=== PATIENT | female | born 1940 | race Hispanic/Latino ===

== ENCOUNTER 2017-09-18 17:30 | Inpatient (IN) | payer MEDICARE ==
[2017-09-18 17:58] LABS: #Basophils 0.1 thou/uL (0.0-0.2); #Eosinphils 0.2 thou/uL (0.0-0.7); #Lymphocytes 1.9 thou/uL (1.20-3.40); #Neutrophils 6.9 thou/uL (1.40-6.50); %Basophils 0.5 % (0.0-1.0); %Eosinophils 2.3 % (0.0-10.0); %Lymphocytes 18.8 % (21.0-51.0); %Monocytes 10.1 % (0.0-10.0); %Neutrophils 68.3 % (42.0-75.0); Hemoglobin 12.8 g/dL (12.0-16.0); Mean Corpuscular HGB CONC 34.1 g/dL (32.0-36.0); Mean Corpuscular Hemoglobin 29.5 pg (27.0-31.0); Mean Corpuscular Volume 86.5 fL (78.0-98.0); Mean Platelet Volume 8.7 fL (7.4-10.4); Platelet Count 240 thou/uL (130-400); RBC Distribution Width 14.1 % (11.5-14.5); Red Blood Cell (RBC) Count 4.33 mill/uL (4.20-5.40); White Blood Cell (WBC) Count 10.1 thou/uL (4.8-10.8)
[2017-09-18 18:18] LABS: ALT (SGPT) 10 U/L (8-55); AST (SGOT) 10 U/L (5-34); Albumin 3.6 g/dL (3.4-4.8); Alkaline Phosphatase 70 U/L (40-150); Anion Gap 14 mmol/L (10-20); BUN (Urea Nitrogen) 29 mg/dL (9.8-20.1); Bilirubin, Total 0.6 mg/dL (0.2-1.2); CK (CPK) 23 U/L (29-168); Calc. Creatinine Clearance 0 mL/min (70-130); Calcium 8.8 mg/dL (7.8-10.44); Carbon Dioxide 25 mmol/L (23-31); Chloride 106 mmol/L (98-107); Estimated GFR-MDRD 38; Globulin 2.3 g/dL (2.4-3.5); Glucose 131 mg/dL (83-110); Potassium 4.1 mmol/L (3.5-5.1); Protein, Total 5.9 g/dL (6.0-8.3); Sodium 141 mmol/L (136-145)
[2017-09-18 18:23] LABS: CKMB 0.7 ng/mL (0-6.6); Troponin I Less than 0.010 ng/mL (< 0.028)
[2017-09-18 19:18] LABS: PTT 31.1 SEC (22.9-36.1); Prothrombin Time 13.6 SEC (12.0-14.7)
--- NOTE | 2017-09-18 19:58 | CT ---
CT HEAD WITHOUT CONTRAST: 09/18/17 Multiple axial tomograms obtained through the head without IV enhancement. INDICATIONS: Stroke activation. HISTORY: Mental status changes and visual change. There are no comparison studies. There is an area of low attenuation in the left cerebellum posteriorly concerning for acute/subacute cerebellar infarct probably in the left PICA distribution. This measures approximately 2.3 cm width i n the axial plane. The ventricles have normal size and position. There is no hemorrhage. There is no evidence of cortica l infarct in the supratentorial region. No mass. Sinuses and mastoids are aerated. IMPRESSION: Evidence of acute/subacute left cerebellar hemisphere infarct. Findings relayed to the ER physician at 7:17 p.m. POS: FELICITAS
[2017-09-18] MEDS ORDERED: Enoxaparin Sodium 80 MG/0.8 ML SYRINGE ONE (20:19)
--- NOTE | 2017-09-18 22:13 | CT ---
CT HEAD WITHOUT CONTRAST: 09/18/17 Multiple axial tomograms obtained through the head without IV enhancement. HISTORY: Followup stroke. Comparison made to film earlier in the evening taken at 7:10 p.m. The prior exam revealed a lucency in the posterior left cerebellum. On the current exam, the cerebellar lucency is not apparent. However, there is now abnormal lucency seen in the right occipital lobe which has developed since the earlier film at 7:10 p.m. This current finding is suggestive of a right posterior cerebral artery in farct. No hemorrhage. No other interval change. IMPRESSION: 1. The lucency seen in the left posterior cerebellum on the early film is not apparent on the cu rrent study. 2. There is now asymmetrical cortical lucency in the right occipital lobe concerning for an micah ier right posterior cerebral artery infarct. Suggest further evaluation with MRI which could assess r estricted diffusion and definitively confirm infarcts. Findings discussed with Sharer. POS: FELICITAS
[2017-09-18 22:32] LABS: Troponin I Less than 0.010 ng/mL (< 0.028)
[2017-09-18] MEDS ORDERED: Labetalol HCl 100 MG/20 ML VIAL SLOW IVP PRN (23:54)
[2017-09-18] MEDS ORDERED: Milk Of Magnesia 30 ML UDCUP PO PRN (23:55)
[2017-09-18] MEDS ORDERED: Mag-Al 1200 mg/1200 mg/30 ML UDCUP PO PRN (23:55)
[2017-09-18] MEDS ORDERED: Ondansetron ODT 4 MG TAB PO PRN (23:55)
[2017-09-19 00:54] VITALS: BMI 30.4
[2017-09-19 00:56] LABS: Troponin I Less than 0.010 ng/mL (< 0.028)
[2017-09-19] MEDS: Acetaminophen 325 MG TAB PO PRN ×4 (04:12→20:34)
[2017-09-19 05:20] LABS: #Basophils 0.1 thou/uL (0.0-0.2); #Eosinphils 0.2 thou/uL (0.0-0.7); #Lymphocytes 2.4 thou/uL (1.20-3.40); %Basophils 0.7 % (0.0-1.0); %Eosinophils 1.9 % (0.0-10.0); %Lymphocytes 22.5 % (21.0-51.0); %Monocytes 9.7 % (0.0-10.0); %Neutrophils 65.2 % (42.0-75.0); Hemoglobin 12.9 g/dL (12.0-16.0); Mean Corpuscular HGB CONC 34.5 g/dL (32.0-36.0); Mean Corpuscular Hemoglobin 29.2 pg (27.0-31.0); Mean Corpuscular Volume 84.6 fL (78.0-98.0); Mean Platelet Volume 8.8 fL (7.4-10.4); Platelet Count 250 thou/uL (130-400); Red Blood Cell (RBC) Count 4.41 mill/uL (4.20-5.40); White Blood Cell (WBC) Count 10.8 thou/uL (4.8-10.8)
[2017-09-19 05:41] LABS: ALT (SGPT) 10 U/L (8-55); AST (SGOT) 11 U/L (5-34); Albumin 3.8 g/dL (3.4-4.8); Alkaline Phosphatase 70 U/L (40-150); Anion Gap 13 mmol/L (10-20); BUN (Urea Nitrogen) 20 mg/dL (9.8-20.1); Bilirubin, Total 0.8 mg/dL (0.2-1.2); Calc. Creatinine Clearance 49 mL/min (70-130); Calcium 9.3 mg/dL (7.8-10.44); Carbon Dioxide 24 mmol/L (23-31); Cardiac Risk 4.6 (Less than 4.5); Chloride 108 mmol/L (98-107); Cholesterol 185 mg/dl (< 200 Desired); Estimated GFR-MDRD 51; Globulin 2.3 g/dL (2.4-3.5); Glucose 97 mg/dL (83-110); HDL Cholesterol 40 mg/dL (>60 Neg Risk); LDL Cholesterol, Calculated 123 mg/dL; Potassium 3.6 mmol/L (3.5-5.1); Protein, Total 6.1 g/dL (6.0-8.3); Sodium 141 mmol/L (136-145); Triglycerides 112 mg/dL (Less than 150); Uric Acid 8.4 mg/dL (2.6-6.0)
[2017-09-19 05:54] LABS: Thyroid Stimulating Hormone 1.1925 uIU/mL (0.35-4.94)
[2017-09-19 06:07] LABS: Free T4 (Free Thyroxine) 1.07 ng/dL (0.70-1.48)
[2017-09-19] MEDS ORDERED: Enoxaparin Sodium 80 MG/0.8 ML SYRINGE SC SCH (09:00)
--- NOTE | 2017-09-19 09:07 | CT ---
CT ANGIO HEAD 09/18/17 Multiple axial tomograms obtained through the head with arterial phase enhancement following an angio protocol with multiplanar reconstructions and 3D postprocessing. INDICATIONS: Stroke protocol. FINDINGS: The intracranial internal carotid arteries are patent. Atherosclerotic calcifications seen in the cav ernous portions of the both internal carotid arteries and this does produce mild stenosis; however, t his does not appear hemodynamically significant. Both middle cerebral arteries appear unremarkable. A nterior cerebral artery is unremarkable. Basilar artery is patent. Posterior cerebrals are unremarkable. The intracranial vertebral arteries are patent with mildly dominant left vertebra. Both PICAs are angelina ntified. Inferior cerebellar artery on the left is not well seen. Both superior cerebellar arteries a re identified. IMPRESSION: Cerebral CT angiogram unremarkable. No major stenosis or occlusion identified. Specifically PICAs are identified. The left anterior inferior cerebellar artery is not well demonstrated. CT ANGIO OF NECK: Multiple axial tomograms obtained through the neck following angio protocol with multiplanar reconstr uctions and 3D postprocessing. INDICATIONS: Stroke protocol. There is atherosclerotic calcification in the aortic arch and this produces mild stenosis at the orig in of the left common carotid. The degree of stenosis appears less than 50% diameter. The left common carotid is otherwise unremarkable. Mild atherosclerotic changes seen at the left carotid bifurcation and proximal left ICA; however, no evidence of significant stenosis. The right common carotid is unremarkable. Moderate atherosclerotic change seen in the right carotid b ifurcation and proximal right ICA; however, the degree of stenosis is not hemodynamically significant . There is irregular plaque at this location which could be a source of embolus. Both internal caroti d arteries above the bulb are very tortuous; however, no evidence of significant stenosis. Both vertebral arteries are patent. The soft tissues show enlarged heterogeneous thyroid with numerou s thyroid nodules in both lobes. There appears to be a dominant mass in the left thyroid measuring up to 2.2 cm. Recommend elective evaluation. IMPRESSION: 1. Mild to moderate stenosis at the origin of the left common carotid at the aortic arch. 2. Irregular plaque in the proximal right ICA without hemodynamically significant stenosis. 3. Very tortuous internal carotid arteries above the bulbs bilaterally. 4. Thyroid is enlarged heterogeneous with numerous small nodules with at least one dominant nodu le identified. POS: LINDA
[2017-09-19] MEDS ORDERED: Amlodipine 5 MG TAB PO SCH (14:00)
[2017-09-19] MEDS ORDERED: Lorazepam 0.5 MG TAB PO PRN (15:17)
[2017-09-19] MEDS ORDERED: Lorazepam 2 MG/ML VIAL SLOW IVP SCH (15:17)
--- NOTE | 2017-09-19 18:36 | HP ---
DATE OF ADMISSION: 09/18/2017 PRIMARY CARE PHYSICIAN: Dr. Geovanny Blanco. CHIEF COMPLAINT: Acute weakness and visual changes. HISTORY OF PRESENT ILLNESS: The patient had acute left-sided weakness in the right visual field defect, stroke score was initially 3 and then moved to 6. The patient had two brain CTs regarding this change in [place] confirmation of acute on subacute infarct. The patient was initiated on therapeutic Lovenox following finding of atrial fibrillation on review of patient's past medical history includes history of atrial fibrillation when patient went into initial thyroid storm and since been placed on methimazole 5 mg 1-1/2 tab daily for control of her symptoms along with her beta ayad, metoprolol without any further episodes of atrial fibrillation in multiple years. The patient was asymptomatic prior to this acute onset of weakness that occurred approximately 3-5 hours prior to presentation to the emergency room last night and has gotten better following initial worsening with anticoagulation therapy and permissive hypertension overnight. The patient has no acute complaints, states her gout in left lower extremity has been controlled. REVIEW OF SYSTEMS: No fever, no chills. Positive headache, positive visual field changes, no cough, no congestion, no runny nose, no sore throat. No chest pains, no palpitations felt per patient. No abdomen pain, no constipation , no diarrhea. No lower extremity edema. No lower extremity pain or swelling in joints currently. No nausea, vomiting, no diarrhea, no constipation. Left- sided weakness resolved, left toe sensorium changes resolved. PAST MEDICAL/SOCIAL/SURGICAL HISTORY: Includes hyperlipidemia, hypertension, thyrotoxicosis with associated atrial fibrillation, resolved for many years, gout with ptosis, coronary artery disease including bypass graft, herniated disk repair of C5-C6, C6-C7, history of childhood asthma no longer active, restless leg syndrome, total vessel CABG x4, patient with hysterectomy and bilateral salpingo-oophorectomy, cholecystectomy, hernia repair, laparoscopic knee, arthroscopy. The patient is a former smoker, quit in 2004. Currently , with family in the city. HOME MEDICATIONS: Include aspirin 325, methimazole 5 mg, verapamil 240 mg extended release, metoprolol 50 mg extended release, pravastatin 40, Ambien 10 mg, allopurinol 300 mg, prednisone 20 mg; however, the patient had finished burst last week and is no longer currently on steroids, Colcrys p.r.n. gout flare-up 0.6 mg b.i.d. IMAGING DATA: On review of CT head, acute on subacute left cerebellar infarct, no hemorrhagic component on repeat CT, [place] contrast study, atherosclerotic changes of aortic arch with mild stenosis of left common carotid artery less than 50% stenosis, irregular plaque and proximal right ICA with patent flow, enlarged thyroid with several nodules present, tortuous internal carotid arteries bilaterally. PHYSICAL EXAMINATION: VITAL SIGNS: On arrival to floor, temperature 97.7, pulse of 68, respiratory rate of 18, oxygen saturation 97%, blood pressure ranging from 145 to 226 systolic and 71 to 98 diastolic. The patient did receive p.r.n. blood pressure medication on labetalol for that. LABORATORY WORK: Troponins x3 less than 0.01, sodium 141, potassium of 4.1, CO2 of 106, creatinine of 1.35 resolved with light IV hydration overnight to 1.06. Uric acid level of 8.4, calcium of 8.8, AST of 10, ALT of 10, albumin of 3.6. TSH of 1.19, free T4 of 1.0, T3 of 2.2. Cholesterol panel with LDL of 123 , HDL of 40, triglycerides 112. PHYSICAL EXAMINATION: GENERAL: The patient is alert and oriented x2. Cannot state date or time a year. Specifically, has trouble listing presidents, but does get right answer on multiple choice. The patient is in no acute distress. HEENT: Normocephalic, atraumatic. Extraocular movements are intact. However, on visual field confrontation, there is a right temporal visual field deficit of approximately 20-30 degrees compared to left. Pupils are equal, round, reactive, and accommodate to light. NECK: Supple. NEUROLOGIC: Cranial nerves II-XII through 10, otherwise grossly intact on exam. The patient's upper and lower extremities are 5/5 strength and equal, 2+ reflexes bilaterally. HEART: Irregularly irregular pattern. No murmurs auscultated. LUNGS: Clear to auscultation bilaterally. No rubs or wheezes. ABDOMEN: Soft, nontender, positive bowel sounds throughout. EXTREMITIES: Lower extremities without cyanosis or edema. ASSESSMENT AND PLAN: Left cerebellar infarct with visual field deficit, recurring speech pattern, resolved left sensorium and muscular changes, new reoccurrence of patient's atrial fibrillation despite her hyperthyroidism being in control. Permissive hypertension, holding patient's home blood pressure medications for CVA protocols, just out of bed p.r.n. with labetalol p.r.n. for systolic greater than 220. Urology to follow, Cardiology to follow regarding the patient's gout not currently flare up, currently holding most the patient's home medications regarding her gout treatment. We will restart as needed. Her uric acid level is elevated. Speech therapy, physical therapy to assess the patient. The patient passed a bedside swallow, started on diet this early a.m. without choking spells or problems. Neuro checks per unit protocol. The patient will be continued on therapeutic Lovenox. Echo and MRI read pending. Nursing update: pt unable to tolerate cramped space. Requesting Ativan for sedation for additional try through MRI. CHARAND
--- NOTE | 2017-09-19 18:56 | CON ---
DATE OF CONSULTATION: 09/19/2017 REASON FOR CONSULTATION: Stroke, likely embolic, atrial fibrillation, history of coronary artery dis ease. HISTORY OF PRESENT ILLNESS: Ms. Elise Livingston is a very pleasant 77-year-old woman, patient of Dr. Cole Patel. The patient has a history of coronary artery bypass grafting in the past, admitted on th is occasion with a stroke. The patient was brought to the hospital with incoordination and weakness, also some difficulty with s peech. She was evaluated and found to have a cerebellar stroke and ischemic evaluation of the caroti d arteries reveals plaque, but no hemodynamic significant obstruction. The patient continues to have problem with coordination, especially the left side of her body. The brain CT revealed lucency of l eft posterior cerebellum, asymmetrical cortical lucency right occipital lobe. The patient did have some worsening of symptoms between the two CT scans, but seems to be improving n ow. PAST MEDICAL HISTORY: History of coronary artery bypass grafting in the year 1999, Dr. Lockhart after a non-Q wave infarction x4, internal mammary to the LAD, radial to the distal right coronary artery, vein graft to the diagonal, vein graft to the posterior descending artery. The patient had previousl y been treated with TPA. The patient was seen by Dr. Patel in 2009, underwent repeat cardiac catheterization and found that one of the vein graft that occluded and a nondrug coated stent was placed in the [place] circumflex 3 .5 x 20, very flexed, patient did well following that. She has been doing well from a cardiac standp oint. There is also some remote history of atrial fibrillation. MEDICATIONS PRIOR TO ADMISSION: 1. The patient was taking metoprolol succinate 50 mg a day. 2. Verapamil 240 mg a day. 3. Livalo. 4. Hydrochlorothiazide. 5. Aspirin 325 mg a day. 6. Gemfibrozil. ALLERGIES: CEPHALEXIN, HYDROCODONE, STATINS. Some of the statins cause muscle discomfort apparently . REVIEW OF SYSTEMS: Constitutional: No weakness or fatigue prior to this. Vision: No changes. Hea ring: No changes. Pulmonary: No shortness of breath. Cardiac: No chest pain or tightness. Gastr ointestinal: No nausea, vomiting, diarrhea. Skin: No rashes. Neurologic: As outlined in the hist ory of present illness. She also has a problem with her short term memory currently, the problem wit h transfer and short term memory to longer term memory. PHYSICAL EXAMINATION: GENERAL: This is a delightful elderly woman. VITAL SIGNS: Blood pressure in the last reading 203/100, pulse is 70, it is irregularly irregular. ABDOMEN: Soft, nontender. EXTREMITIES: No clubbing or cyanosis. There is only mild peripheral edema. Pulses are present alexa pherally. PERTINENT LABORATORY AND X-RAY FINDINGS: Hemoglobin is 12.9, hematocrit 37.3. Her LDL cholesterol is 123. The EKG initially showed atrial fibrillation with a slow ventricular res ponse, but she has not received the diltiazem or metoprolol and now heart rate is up in the 80s. ASSESSMENT: 1. Embolic stroke, likely related to atrial fibrillation. 2. Coronary artery disease, appears stable. 3. Hypertension. 4. Previous coronary bypass grafting. PLAN: 1. We will resume beta blockers to heart rate control. 2. We will add dihydropyridine to help blood pressure control. 3. Continue anticoagulation. Dr. Patel will return Thursday to resume patient's care. I will cont inue to see her over the weekend. I will double check and see what the most recent blood pressure is .
--- NOTE | 2017-09-19 19:57 | CON ---
DATE OF CONSULTATION: 09/19/2017 CHIEF COMPLAINT: Acute stroke. HISTORY OF PRESENT ILLNESS: Patient's daughter was by her bedside, but she was not present during the event when she was brought to the hospital, but daughter said her stepfather called her and said she was sick and may be having a stroke and patient's daughter quickly went there and she describes this as an episode of some sort where she had significant confusion along with weakness and she had blurred vision and visual difficulties and moving toward the right when she was walking and she had headache as well and she takes aspirin daily. The patient has never had a stroke and she also had more confusion even when she was in the emergency room and she had problems including difficulties with confusion which is new for her, and she is normally able to keep up with dates and has a calendar and maintains everything at home. PRIOR MEDICAL HISTORY: Coronary artery disease status post stent placement, hypothyroidism, hyperlipidemia, hypertension, and gout. PAST SURGICAL HISTORY: Appendectomy, coronary artery bypass graft which was a 4 -vessel bypass, hysterectomy, stent placement. SOCIAL HISTORY: No use of alcohol or drugs. Used to smoke, quit smoking 10 years ago. ALLERGIES: KEFLEX causes hives, STATINS and VICODIN. CURRENT MEDICATIONS: At home, she takes methimazole, hydrochlorothiazide, metoprolol, verapamil and aspirin. FAMILY HISTORY: Negative for stroke, but positive for coronary artery disease. LABORATORY DATA AND IMAGING DATA: Current laboratory reports; white count 10.8 , hemoglobin 12.9, hematocrit 37.3, platelets 250, PT 13.6, INR 1, PTT 31.1. Sodium 141, potassium 3.6, chloride 108, bicarbonate 24, BUN 20, creatinine 1.06 , AST 11, ALT 10, alkaline phosphatase 70, T3 is 2.27, T4 1.07, TSH 1.19 and her reports including brain CT scan. 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 Vertebrals are patent and no stenosis, especially in the MEDICAL OFFICE TECHNICIAN according to this report. REVIEW OF SYSTEMS: Pulmonary: Normal. CARDIAC: Normal. GASTROINTESTINAL: Normal. No diarrhea or constipation. CARDIAC: Negative for any chest pain or palpitations. GENITOURINARY: No bladder issues such as urgency or frequency of urination. NEUROLOGICAL: Positive for vision deficit which has resolved by this morning and also incoordination and confusion. HEMATOLOGIC: Normal. No bleeding diatheses. DERMATOLOGIC: Normal. PHYSICAL EXAMINATION: VITAL SIGNS: Blood pressure 203/100, temperature 97.8, respiratory rate 24, pulse is 74. GENERAL APPEARANCE: Well-built, well-nourished lady who seems to be slightly confused. Daughter is by the bedside. CHEST: Clear vesicular breathing. CARDIOVASCULAR: S1, S2 heard, no murmurs. ABDOMEN: Soft, nontender, no organomegaly noted. NEUROLOGIC: Oriented to place and person, but not to time, says it is July and 2011. She could not give me a date and her cranial nerve examination II through II, normal extraocular movements. Normal fundus exam. Normal pupillary reaction bilaterally and her examination also shows normal sensation of face bilaterally. Preserved visual diallo bilaterally and tongue midline, no atrophy noted. Normal sensation of face. No facial asymmetry. Hearing is normal. MOTOR: Bulk normal, tone normal, strength is 5/5 in upper and lower extremities in iliopsoas, hamstrings, quadriceps, ankle dorsiflexion, plantar flexion, deltoid, biceps, triceps, wrist extension/flexion, finger extension and flexion bilaterally. Deep tendon reflexes are 2+ throughout. SENSORY: Normal touch, pinprick, proprioception, vibration bilaterally. CEREBELLAR: Normal ghjpea-[id number] on the right side and normal heel to michel on the right side. Cerebellar; impaired [id number] and [id number] on the left side. IMPRESSION: Patient is a 77-year-old lady with vascular disease including coronary artery disease and prior stent placement. She has hypertension and hyperlipidemia. She takes aspirin for her cardiac issues. She developed sudden onset acute stroke including confusion and incoordination and visual field defects. Her examination shows resolution of the visual field defect, but she has clearly abnormalities on her cerebellar examination on the left side. Clinical diagnosis is most consistent with acute cerebellar stroke most likely left MEDICAL OFFICE TECHNICIAN infarct and she is currently pending MRI scan. RECOMMENDATIONS: I would like to go ahead and follow up on the carotid Dopplers as well as MRI of the brain. Consider adding Plavix in addition to aspirin for stroke prevention and complete stroke workup including echocardiogram. I will follow up patient with you. XOCHITL
[2017-09-19] MEDS: Enoxaparin Sodium 80 MG/0.8 ML SYRINGE SC SCH (20:33)
[2017-09-19] MEDS: Pravastatin Sodium 40 MG TAB PO SCH (20:35)
[2017-09-19] MEDS: Metoprolol Tartrate 25 MG TAB PO SCH (20:35)
[2017-09-20] MEDS: Acetaminophen 500 MG TAB PO PRN ×3 (02:03→15:19)
[2017-09-20 06:24] LABS: Hemoglobin 13.8 g/dL (12.0-16.0); Platelet Count 243 thou/uL (130-400)
[2017-09-20] MEDS ORDERED: Amlodipine 5 MG TAB PO SCH ×3 (09:00→19:45)
[2017-09-20] MEDS: Metoprolol Tartrate 25 MG TAB PO SCH ×2 (09:25→20:31)
[2017-09-20] MEDS: Enoxaparin Sodium 80 MG/0.8 ML SYRINGE SC SCH (09:25)
--- NOTE | 2017-09-20 10:53 | MRI ---
BRAIN MRI NONCONTRAST: COMPARISON: Reference is made to prior head CT exams 09/18/17. CLINICAL HISTORY: Left cerebellar stroke, generalized weakness. FINDINGS: There is evidence of abnormal restricted diffusion within a right HEAD OF INSIGHT distribution which involves the right occipital lobe, inferior right temporal lobe, and the right thalamus. Left HEAD OF INSIGHT distribution i nfarction is also present within the left occipital lobe. Subacute left cerebellar hemispheric infar ct is redemonstrated. There is susceptibility within the left occipital lobe. There is no midline s hift or ventriculomegaly. The large central skull base flow voids are patent. There is scattered mi ld mucosal thickening/retention cyst formation. IMPRESSION: Multifocal bilateral HEAD OF INSIGHT distribution infarctions, recent and subacute in time frame as discussed abo ve. There is associated hemorrhagic transformation within the left occipital lobe. Continued noncon trast head CT followup is warranted. Telephone call with findings placed to patient's physician, Dr. Leo Howell, at the time of inter pretation, 1031 hours, 09/20/17. CODE CR POS: FELICITAS
--- NOTE | 2017-09-20 12:39 | PDOC.CTH ---
Cardiology Progress Note - Objective Vital Signs Temp Pulse Pulse Pulse Resp BP BP 09/20/17 11:44 98.4 F 85 16 09/20/17 11:26 86 83 159/83 H 173/81 H 09/20/17 09:25 81 09/20/17 08:30 98.4 F 85 16 09/20/17 08:00 98.6 F 81 16 09/20/17 04:00 98.9 F 84 18 BP Pulse Ox 09/20/17 11:44 185/82 H 97 09/20/17 11:26 09/20/17 09:25 09/20/17 08:30 92 L 09/20/17 08:00 139/87 92 L 09/20/17 04:00 167/79 H 96 Weight 150 lb 11.2 oz 09/19/17 09/20/17 09/21/17 06:59 06:59 06:59 Intake Total 240 1650 Output Total 500 Balance 240 1150 - Telemetry Telemetry Rhythm: AFib/AFlutter, rate-controlled - Labs Result Diagrams: 09/20/17 05:42 09/20/17 05:42 Troponin/CKMB CK-MB (CK-2) 0.7 ng/mL (0-6.6) 09/18/17 17:51 Troponin I Less than 0.010 ng/mL (< 0.028) 09/19/17 00:26 - Assessment/Plan 1. CVA, embolic-likely 2/2 to AFib. Symptoms improving. 2. AFib/AFlutter- persistent, rate controlled on metoprolol. Continue enoxaparin 1mg/kg BID. 3. CAD-s/p CABG, s/p PCI. No anginal symptoms. On ASA, BB, statin. 4. Essential HTN- 5. Hyperlipidemia- most recent LDL 123.
[2017-09-20] MEDS ORDERED: Protamine Sulfate 50 MG/5 ML VIAL SLOW IVP SCH (14:15)
[2017-09-20] MEDS: cloNIDine 0.1 MG TAB PO PRN (14:15)
--- NOTE | 2017-09-20 14:34 | PRG ---
DATE OF SERVICE: 09/20/2017 CHIEF COMPLAINT: Bilateral DJANGO DEVELOPER infarct. INTERVAL HISTORY: The patient is stable overnight and is also working with a therapist with her gait . No new complaints per family. Current report MRI shows abnormal restricted diffusion within the r ight DJANGO DEVELOPER which involves right occipital lobe, right temporal lobe and right thalamus. Left DJANGO DEVELOPER infar ct is also present within the left occipital lobe. Subacute left cerebellar hemispheric infarct susc eptibility within the left occipital lobe and so these are compatible with multiple left DJANGO DEVELOPER infarct. LABORATORY DATA: Hemoglobin 13.8, hematocrit 40.7, platelets 243 and chemistry, BUN 1.15. Creatinin e 46. PHYSICAL EXAMINATION: GENERAL: Well-built, well-nourished lady who is comfortable. Daughter is by her bedside. VITAL SIGNS: Blood pressure 185/82, temperature 98.4, pulse is 85. CHEST: Clear vesicular breathing. CARDIOVASCULAR: S1, S2 heard, no murmurs. NEUROLOGIC: Higher intellectual functions, normal orientation to time, place, person. Cranial nerve s: Normal extraocular movements. She did not report any visual field defect today and no facial asy mmetry noted. Motor, bulk normal, tone normal, strength 5/5, but cerebellar exam, left cerebellar ab normalities with [id number]-xysp and [id number]-ih-[id number]. Gait, she is trying to stand up on her own and is same and seems to be stable, but walks with a walker. IMPRESSION: Patient is a 77-year-old lady with bilateral posterior cerebral artery infarcts, likely embolic in nature. At this time, due to concern for hemorrhagic transformation, it is jones to hold o ff on anticoagulation and temporarily. RECOMMENDATIONS: Please monitor neurological status. She eventually will need anticoagulation or an tiplatelet therapy and for her cardiac issues and she is being seen by Cardiology as well at this maryjane e. Please call Neurology. I will request Neurology team to follow her tomorrow again.
--- NOTE | 2017-09-20 14:55 | PRG ---
DATE OF SERVICE: 09/20/2017 HISTORY OF PRESENT ILLNESS: The patient's short term memory has substantially worsened from yesterda y. On exam, her right temporal field of view is somewhat worsened. Patient is not having any speech difficulties, not having any motor dysfunction. Following Ativan premedication, she was able to und ergo MRI, found to have a slow extension of her cerebellar infarct. This is acute as well on subacut e process. 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 There is a small punctate hemorrhagic transformation in the left occipital lobe; however, this is discussed with radiologist sb Bailey, neurologist. OBJECTIVE: VITAL SIGNS: Temperature of 98.4, pulse of 85, respiratory rate of 16, oxygen saturation on 92-97% o n room air, blood pressure 173/81. GENERAL: The patient is alert x2. No focal distress. She is anxious. HEENT: Head is normocephalic, atraumatic. Extraocular movements are intact. Pupils are equal, roun d, and accommodate to light with intact convergence. Patient with worsening right oil field of view deficits now to approximately 40-45% from 100% degree plane laterally. The patient with worsening re peating of herself short term memory, ask the same question approximately 3-5 times in a 20 minute ti me frame at bedside. Upper and lower extremities intact, 5/5 strength. Sensorium is intact. The pa flako reportedly had difficulty balancing with physical therapy when walking yesterday. CARDIOVASCULAR: Patient with irregularly irregular rate. No murmurs auscultated. LUNGS: Clear to auscultation bilaterally. No rubs or wheezes. ABDOMEN: Soft, nontender, positive bowel sounds throughout. EXTREMITIES: Lower extremities without cyanosis or edema. Bilateral dorsalis pedis pulses intact. LABORATORY DATA: Hemoglobin of 13.8, creatinine of 1.1. Echocardiogram and CT neck unremarkable for stenosis and an intact ejection fraction. 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 Cardiology agrees with anticoagul ation; however, his evaluation was prior to known hemorrhagic extension, although be at punctate. Ra diology recommending a CT head to further evaluate in morning and any mass effect shift. Neurology a colby with slight decrease in Lovenox to [address] head, continuing physical therapy sp eech at this point in time. Regarding the patient's atrial fibrillation, currently on rate control w ith metoprolol and blood pressure control with Norvasc with some permissive hypertension elements giv en patient's current stroke status. The patient has been tolerating diet well. Given extension of s troke and current balance issues, we will likely bring in case management for potential transitional placement. Patient has been started on Ativan for anxiety, successfully underwent MRI with IV Ativan for premedication procedure.
[2017-09-20 15:04] LABS: Bilirubin Small (Negative); Blood, Urine Trace (Negative); Clarity CLOUDY (Clear); Glucose, Urine (Dipstick) Negative (Negative); Leukocyte Negative (Negative); Nitrite Negative (Negative); Protein, Urine (Dipstick) 300 mg/dL (Neg-Trace); Specific Gravity, Urine 1.027 (1.002-1.036); pH, Urine 6.5 (5.0-9.0)
[2017-09-20 15:07] LABS: Squamous Epithelial 21-50 HPF (0-3)
[2017-09-20 15:08] LABS: Pathc Cast-AUWi Flag 3.48 (0-2.49); Yeast-AUWi Flag 207.8 (0-25.0)
[2017-09-20 15:15] LABS: Bacteria/HPF 1+ HPF (None Seen); Hyaline Casts/LPF NONE SEEN LPF (0-3 Hyaline); Manual Microscopic Reviewed? No Path Casts Seen; Yeast-All Forms 1+ HPF (None Seen)
[2017-09-20] MEDS: Pravastatin Sodium 40 MG TAB PO SCH (20:31)
[2017-09-21 05:28] LABS: #Basophils 0.1 thou/uL (0.0-0.2); #Eosinphils 0.2 thou/uL (0.0-0.7); #Lymphocytes 2.5 thou/uL (1.20-3.40); #Monocytes 1.1 thou/uL (0.11-0.59); #Neutrophils 6.6 thou/uL (1.40-6.50); %Basophils 0.6 % (0.0-1.0); %Eosinophils 1.7 % (0.0-10.0); %Lymphocytes 23.9 % (21.0-51.0); %Monocytes 10.8 % (0.0-10.0); %Neutrophils 63.1 % (42.0-75.0); Hemoglobin 13.9 g/dL (12.0-16.0); Mean Corpuscular HGB CONC 33.1 g/dL (32.0-36.0); Mean Corpuscular Hemoglobin 28.6 pg (27.0-31.0); Mean Corpuscular Volume 86.3 fL (78.0-98.0); Platelet Count 256 thou/uL (130-400); Red Blood Cell (RBC) Count 4.88 mill/uL (4.20-5.40); White Blood Cell (WBC) Count 10.4 thou/uL (4.8-10.8)
[2017-09-21 05:52] LABS: ALT (SGPT) 10 U/L (8-55); AST (SGOT) 16 U/L (5-34); Albumin 3.7 g/dL (3.4-4.8); Alkaline Phosphatase 70 U/L (40-150); Anion Gap 12 mmol/L (10-20); BUN (Urea Nitrogen) 14 mg/dL (9.8-20.1); Bilirubin, Total 0.9 mg/dL (0.2-1.2); Calc. Creatinine Clearance 45 mL/min (70-130); Calcium 9.6 mg/dL (7.8-10.44); Carbon Dioxide 25 mmol/L (23-31); Chloride 105 mmol/L (98-107); Estimated GFR-MDRD 46; Globulin 2.6 g/dL (2.4-3.5); Glucose 92 mg/dL (83-110); Potassium 3.4 mmol/L (3.5-5.1); Protein, Total 6.3 g/dL (6.0-8.3); Sodium 139 mmol/L (136-145)
--- NOTE | 2017-09-21 08:11 | CT ---
CT OF THE BRAIN WITHOUT CONTRAST: INDICATION: History of hemorrhagic stroke. COMPARISON: MRI of the brain dated 09/19/[address] of the brain dated 09/18/17. FINDINGS: The known bilateral SOFTWARE INSTALLER distribution infarcts and left inferior cerebellar hemorrhage infarct is much more apparent on CT than on the comparison dated 09/18/17. Area of cortical hemorrhagic conversion i nvolving the left occipital lobe appears similar to the comparison MR dated 09/20/17. There is much m ore apparent edema within bilateral occipitals as well as the cerebellar hemisphere. Basilar cistern s remain patent. No midline shift is evident. The skull and extracranial soft tissues appear within normal limits. IMPRESSION: Evolutionary changes of the bilateral SOFTWARE INSTALLER and left inferior cerebellar hemisphere infarcts. There is cortical hemorrhagic conversion involving the left occipital lobe infarct best seen on the MR examin ation of 09/20/17 appears stable. No apparent midline shift or basilar cistern effacement is grossly evident. POS: [facility]
--- NOTE | 2017-09-21 08:18 | PRG ---
DATE OF SERVICE: 09/21/2017 SUBJECTIVE: This is a 77-year-old white female, who presented on Thursday, 3 days prior, with ataxia a nd memory loss. She was doing well prior to that. She was brought to the emergency room and was fou nd to have a bilateral GEOSPATIAL INFORMATION TECHNOLOGIST infarctions, recent and subacute. She was placed on Lovenox. The rema calvo was present this morning and states that she is improving slowly. She is conversing, but experienc ing problems with short-term memory loss and with walking. She seems to shuffle and has a quit gait, not well controlled. OBJECTIVE: VITAL SIGNS: Temperature 98.4, pulse 84, respirations 16, pulse ox 95, blood pressure 173/84. HEART: Irregularly, irregular. No murmurs noted. LUNGS: Clear. ABDOMEN: Soft. NEUROLOGIC: With abnormal [id number] and decreased coordination of the left side. She does have good strength bilaterally, but does not have coordinated movements. LABORATORY DATA: White count 10.4, H and H 13 and 42. Electrolytes: Sodium 139, potassium 3.4, cre atinine 1.14, BUN 14. CT done this morning for followup. ASSESSMENT: 1. Bilateral posterior cerebral artery infarction, worse on the left. 2. Atrial fibrillation. 3. Hyperthyroidism. 4. Hypertension. 5. Hyperlipidemia. 6. Gout. 7. Anxiety disorder. PLAN: 1. CT report pending this morning. 2. Cautious anticoagulation. 3. Continue to monitor for any progression. 4. Will need to be on long-term anticoagulation to prevent further stroke progression or recurrence.
--- NOTE | 2017-09-21 08:57 | ADD-PRG ---
ADDENDUM DATE OF SERVICE: 09/20/2017 SUBJECTIVE: Ms. Livingston is feeling better today. She is more alert and awake. Her coordination seems to have improved. OBJECTIVE: VITAL SIGNS: Her blood pressure, however, is high earlier in the day was 139/87, but follow up was 1 73/81 and 185/82, pulse is 85, it is irregular. LUNGS: Clear. CARDIAC: Irregularly irregular. The brain MRI revealed that she has multiple bilateral posterior circulation distribution infarctions recent and subacute compatible with embolic event from her atrial fibrillation. In addition to that, there is some associated hemorrhagic transformation within the left occipital lo be. ASSESSMENT: 1. Multiple embolic strokes, likely from her atrial fibrillation. 2. Some hemorrhagic transformation identified. 3. Hypertension. 4. Chronic atrial fibrillation. PLAN: 1. We will give additional medicine to lower blood pressure. 2. She is clinically stable and is now over 4 hours after the enoxaparin dose most recently, but I w ill go ahead and at least give her some dose of protamine, at least partially reverse the enoxaparin. Prognosis guarded to this patient. Unfortunately, she will be at high risk of further embolic stro kes. At some point, consideration for resuming anticoagulants. For now, we will stop aspirin and st op enoxaparin.
[2017-09-21] MEDS ORDERED: Aspirin 81 mg Enteric Coated Tablet PO SCH (09:00)
[2017-09-21] MEDS: cloNIDine 0.1 MG TAB PO PRN (09:01)
[2017-09-21] MEDS: Amlodipine 10 MG TAB PO SCH (09:02)
[2017-09-21] MEDS: Metoprolol Tartrate 25 MG TAB PO SCH ×2 (09:02→19:58)
[2017-09-21] MEDS: Methimazole 5 MG TAB PO SCH (09:02)
[2017-09-21] MEDS: Acetaminophen 500 MG TAB PO PRN (11:27)
[2017-09-21] MEDS: Acetaminophen 325 MG TAB PO PRN ×2 (16:51→22:42)
[2017-09-21] MEDS: Pravastatin Sodium 40 MG TAB PO SCH (19:58)
[2017-09-22] MEDS: Acetaminophen 500 MG TAB PO PRN ×2 (09:05→17:05)
[2017-09-22] MEDS: ALPRAZolam 0.25 MG TAB PO PRN ×3 (09:06→21:25)
[2017-09-22] MEDS: Amlodipine 10 MG TAB PO SCH (09:06)
[2017-09-22] MEDS: Metoprolol Tartrate 25 MG TAB PO SCH ×2 (09:06→21:25)
[2017-09-22] MEDS: Polyethylene Glycol 3350 17 GM Packet PO SCH (09:07)
[2017-09-22] MEDS: Methimazole 5 MG TAB PO SCH (09:07)
[2017-09-22] MEDS: Ezetimibe 10 MG TAB PO SCH (09:30)
--- NOTE | 2017-09-22 13:14 | PRG ---
DATE OF SERVICE: 09/22/2017 SUBJECTIVE: The patient is having difficulty sleeping. She has been very agitated. She ruminates o stephanie various things. She is focusing on her IV in her left forearm. She states . It is being a ble to be removed today. She is also very emotional and said does not want to go to [facility]. The family reports that she has a very staggering gait. She walks with rapid short steps . She also requires assistance. She is able to eat with some slight difficulty. She has decreased coordination in her left upper extremity. OBJECTIVE: VITAL SIGNS: Temperature 97.7, pulse 87, respirations 20, pulse ox 97, blood pressure 129/76. HEART: Irregularly irregular. LUNGS: Clear. ABDOMEN: Soft. EXTREMITIES: No edema. NEUROLOGIC: Abnormal [id number] with the left upper extremity abnormal dysdiadochokinesis of the left upper extremity. She appears to have upper peripheral vision defects bilaterally. LABORATORY DATA: None. ASSESSMENT: 1. 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 No midline shift. Hemorrhage is present. Anticoagulation at this time is on hold. 2. Status post coronary artery bypass graft. 3. Atrial fibrillation. 4. Hypertension. 5. Hyperlipidemia. 6. Gout. PLAN: 1. Discharge planning. I strongly recommend the patient go to [facility]. Family is all in agreement. The patient is unable to go home at this time due to her deficits. 2. Will depend on Cardiology and Neurology to determine when to initiate anticoagulation. She is at risk for further bleeding. Unfortunately, the patient may not be a candidate for Zoloft for anxiety due to Zoloft increase risk of cerebral hemorrhage. Also Wellbutrin may not be a good choice due to its increased risk for seizures. Xanax may be the only choice. She may require Xanax at bedtime.
[2017-09-23] MEDS: Acetaminophen 500 MG TAB PO PRN (01:28)
[2017-09-23 05:31] LABS: INR-International Normal Ratio 1.1; Prothrombin Time 14.2 SEC (12.0-14.7)
[2017-09-23 05:34] LABS: #Eosinphils 0.1 thou/uL (0.0-0.7); #Lymphocytes 1.6 thou/uL (1.20-3.40); #Monocytes 1.3 thou/uL (0.11-0.59); #Neutrophils 7.2 thou/uL (1.40-6.50); %Basophils 0.3 % (0.0-1.0); %Eosinophils 1.2 % (0.0-10.0); %Lymphocytes 15.7 % (21.0-51.0); %Monocytes 12.8 % (0.0-10.0); Hemoglobin 13.1 g/dL (12.0-16.0); Mean Corpuscular HGB CONC 33.1 g/dL (32.0-36.0); Mean Corpuscular Hemoglobin 28.2 pg (27.0-31.0); Mean Corpuscular Volume 85.4 fL (78.0-98.0); Mean Platelet Volume 8.7 fL (7.4-10.4); Platelet Count 235 thou/uL (130-400); RBC Distribution Width 14.1 % (11.5-14.5); Red Blood Cell (RBC) Count 4.64 mill/uL (4.20-5.40); White Blood Cell (WBC) Count 10.3 thou/uL (4.8-10.8)
[2017-09-23 05:38] LABS: Anion Gap 11 mmol/L (10-20); BUN (Urea Nitrogen) 14 mg/dL (9.8-20.1); Calc. Creatinine Clearance 46 mL/min (70-130); Calcium 9.2 mg/dL (7.8-10.44); Carbon Dioxide 25 mmol/L (23-31); Chloride 108 mmol/L (98-107); Estimated GFR-MDRD 46; Glucose 98 mg/dL (83-110); Potassium 3.4 mmol/L (3.5-5.1); Sodium 141 mmol/L (136-145)
[2017-09-23 06:31] VITALS: TEMP 97.8
[2017-09-23] MEDS ORDERED: Indomethacin 25 mg Capsule PO PRN (07:11)
[2017-09-23] MEDS ORDERED: Potassium Chloride 10 MEQ TAB PO SCH (08:00)
[2017-09-23] MEDS: Polyethylene Glycol 3350 17 GM Packet PO SCH (08:01)
[2017-09-23] MEDS: Ezetimibe 10 MG TAB PO SCH (08:01)
[2017-09-23] MEDS: Methimazole 5 MG TAB PO SCH (08:02)
[2017-09-23] MEDS: Amlodipine 10 MG TAB PO SCH (08:05)
[2017-09-23] MEDS: Metoprolol Tartrate 25 MG TAB PO SCH (08:05)
[2017-09-23] MEDS: ALPRAZolam 0.25 MG TAB PO PRN (08:12)
[2017-09-23 11:56] VITALS: BP 147/76
== END 2017-09-23 13:16 | disposition short-term general hospital (02) | DRG 65 ==
LOC: ERS 17:30 → 2SE 21:08
PROVIDERS: ADMIT Family Medicine; ATTEND Family Medicine
DX: I63.342 Cerebral infarction due to thrombosis of left cerebellar artery (principal); G81.94 Hemiplegia, unspecified affecting left nondominant side; H53.8 Other visual disturbances; R47.89 Other speech disturbances; I10 Essential (primary) hypertension; E21.3 Hyperparathyroidism, unspecified; E03.9 Hypothyroidism, unspecified; E78.00 Pure hypercholesterolemia, unspecified; M10.9 Gout, unspecified; F41.9 Anxiety disorder, unspecified; I48.2 Chronic atrial fibrillation; I25.10 Atherosclerotic heart disease of native coronary artery without angina pectoris; Z95.1 Presence of aortocoronary bypass graft
CPT/HCPCS: 36415; 70450; 70496; 70498; 70551; 80048; 80053; 80061; 81003; 81015; 82553; 82565; 84439; 84443; 84481; 84484; 84550; 85014; 85018; 85025; 85049; 85610; 85730; 87086; 93005; 93306; 96372; G8978-GP-CK; G8979-GP-CI; G8987-GO-CJ; G8988-GO-CI; G8996-GN-CI; G8997-GN-CI; J1650; J2060; J2720

== ENCOUNTER 2017-12-01 14:21 | Outpatient (CLI) | payer MEDICARE ==
--- NOTE | 2017-12-01 17:58 | CT ---
CT BRAIN NONCONTRAST: DATE: 12/01/17. HISTORY: A 77-year-old female with: I66.23, occlusion and stenosis of bilateral posterior cerebral arteries. COMPARISON: CT of 09/21/17. FINDINGS: The moderately large infarction in the right posterior cerebral artery territory, extending from the posterior right temporal lobe through the right occipital lobe, has evolved into encephalomalacia and gliosis. The moderate-sized infarction in the left paramedian occipital lobe which had undergone hemorrhagic t ransformation previously, has evolved into encephalomalacia and gliosis. The moderate-sized infarction in the posterior aspect of the left cerebellar hemisphere has evolved i nto encephalomalacia and gliosis. There is no mass effect or midline shift. Ventricles are normal in size and configuration. No acute intraaxial or extraaxial hemorrhage. No extraaxial fluid collection. IMPRESSION: Evolution of the previously demonstrated infarctions into encephalomalacia and gliosis (now old infar ctions). These consist of the followin. Large old infarction in the right posterior cerebral artery territory. 2. Small to moderate-sized old infarction in the left posterior cerebral artery territory. 3. Moderate-sized old infarction in the left PICA (posterior-inferior cerebellar artery) territory. 4. No acute intracranial findings. HERMAN Arriola POS: [facility]
== END 2017-12-01 14:22 | disposition home or self-care (01) ==
LOC: BICCT 14:21
PROVIDERS: ATTEND Psychiatry & Neurology Neurology
DX: I66.23 Occlusion and stenosis of bilateral posterior cerebral arteries (principal)
CPT/HCPCS: 70450

== ENCOUNTER 2018-01-04 09:45 | Emergency (ER) | payer MEDICARE ==
--- NOTE | 2018-01-04 11:19 | RAD ---
THREE VIEWS RIGHT ANKLE: Date: 01-04-18 Comparison: 10-05-14 History: 77-year-old with right ankle pain. FINDINGS: AP, lateral, and oblique views obtained and demonstrate no evidence of right ankle fractures, subluxa tions, or bony lesions. IMPRESSION: Normal three views right ankle. POS: [facility]
--- NOTE | 2018-01-04 11:56 | RAD ---
FOUR VIEWS RIGHT KNEE: HISTORY: Pain. FINDINGS: AP, lateral, and both oblique views right knee obtained. Four views right knee demonstrate joint space narrowing with osteophytes seen in the medial compartme nt of the right knee. IMPRESSION: No evidence of acute right knee abnormality seen. POS: [facility]
--- NOTE | 2018-01-04 12:07 | ULT ---
VENOUS DUPLEX SONOGRAM RIGHT LOWER EXTREMITY: HISTORY: Right leg pain and edema. FINDINGS: The right common femoral vein and greater saphenous junction are evaluated along with the femoral, de ep femoral, popliteal, and posterior tibial veins. There is good color and spectral Doppler flow, co mpression, and augmentation. At the popliteal fossa, a large lobular septated cystic mass measures u p to 7.3 cm length x 2.1 cm depth. IMPRESSION: 1. No sonographic evidence of deep vein thrombosis right lower extremity. 2. Large cystic mass right popliteal fossa. 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 POS: [facility]
== END 2018-01-04 12:39 | disposition home or self-care (01) ==
LOC: ERS 09:45
DX: M17.11 Unilateral primary osteoarthritis, right knee (principal); M71.21 Synovial cyst of popliteal space [Baker], right knee; M25.571 Pain in right ankle and joints of right foot; F41.9 Anxiety disorder, unspecified; I11.0 Hypertensive heart disease with heart failure; I50.9 Heart failure, unspecified; E03.9 Hypothyroidism, unspecified; M10.9 Gout, unspecified; Z87.891 Personal history of nicotine dependence; Z86.73 Personal history of transient ischemic attack (TIA), and cerebral infarction without residual deficits; Z79.82 Long term (current) use of aspirin; Z79.899 Other long term (current) drug therapy

== ENCOUNTER 2020-11-14 16:06 | Inpatient (IN) | payer MEDICARE ==
[~2020-11-14 16:06] MED LIST: Iopamidol-370 76% 500 ML 1 ML ONE
[2020-11-14 17:40] LABS: #Eosinphils 0.2 thou/uL (0.0-0.7); #Lymphocytes 1.2 thou/uL (1.20-3.40); #Monocytes 1.9 thou/uL (0.11-0.59); #Neutrophils 16.3 thou/uL (1.40-6.50); %Basophils 0.2 % (0.0-1.0); %Eosinophils 0.8 % (0.0-10.0); %Lymphocytes 6.3 % (21.0-51.0); %Monocytes 9.6 % (0.0-10.0); %Neutrophils 83.1 % (42.0-75.0); Hemoglobin 13.6 g/dL (12.0-16.0); Mean Corpuscular HGB CONC 34.6 g/dL (32.0-36.0); Mean Corpuscular Hemoglobin 29.7 pg (27.0-31.0); Mean Corpuscular Volume 85.7 fL (78.0-98.0); Mean Platelet Volume 8.8 fL (7.4-10.4); Platelet Count 269 thou/uL (130-400); RBC Distribution Width 14.2 % (11.5-14.5); Red Blood Cell (RBC) Count 4.57 mill/uL (4.20-5.40); White Blood Cell (WBC) Count 19.6 thou/uL (4.8-10.8)
[2020-11-14 18:05] LABS: ALT (SGPT) 27 U/L (8-55); AST (SGOT) 22 U/L (5-34); Albumin 4.1 g/dL (3.4-4.8); Alkaline Phosphatase 82 U/L (40-110); Anion Gap 16 mmol/L (10-20); BUN (Urea Nitrogen) 25 mg/dL (9.8-20.1); Bilirubin, Total 1.2 mg/dL (0.2-1.2); Calc. Creatinine Clearance 0 mL/min (70-130); Calcium 8.8 mg/dL (7.8-10.44); Carbon Dioxide 18 mmol/L (23-31); Chloride 109 mmol/L (98-107); Globulin 2.7 g/dL (2.4-3.5); Glucose 117 mg/dL (83-110); Potassium 4.8 mmol/L (3.5-5.1); Protein, Total 6.8 g/dL (5.8-8.1); Sodium 138 mmol/L (136-145)
[2020-11-14] MEDS ORDERED: Azithromycin 500 MG VIAL ONE (18:46)
[2020-11-14] MEDS ORDERED: hydrALAZINE 20 MG/ML VIAL SLOW IVP PRN (21:11)
[2020-11-14 21:23] LABS: SARS-CoV-2 NAA Rapid Test Not Detected (NotDetected)
[2020-11-14 21:48] VITALS: BMI 31.6
[2020-11-14] MEDS ORDERED: Metoprolol Tartrate 50 MG TAB ONE (23:28)
[2020-11-14] MEDS ORDERED: hydrALAZINE 25 MG TAB ONE (23:28)
[2020-11-14] MEDS ORDERED: Apixaban 5 MG TAB PO SCH (23:30)
[2020-11-14] MEDS ORDERED: hydrALAZINE 25 MG TAB PO SCH (23:30)
[2020-11-14] MEDS ORDERED: Ezetimibe 10 MG TAB PO SCH (23:30)
[2020-11-15] MEDS ORDERED: Furosemide 40 MG/4 ML VIAL SLOW IVP SCH (04:30)
[2020-11-15] MEDS ORDERED: Furosemide 40 MG/4 ML VIAL ONE (05:17)
[2020-11-15] MEDS ORDERED: Electrolyte Replacement Protocol 1 EACH FS SCH (05:45)
[2020-11-15 05:49] LABS: #Basophils 0.1 thou/uL (0.0-0.2); #Eosinphils 0.2 thou/uL (0.0-0.7); #Lymphocytes 0.9 thou/uL (1.20-3.40); #Monocytes 1.2 thou/uL (0.11-0.59); #Neutrophils 11.7 thou/uL (1.40-6.50); %Basophils 0.5 % (0.0-1.0); %Eosinophils 1.4 % (0.0-10.0); %Lymphocytes 6.6 % (21.0-51.0); %Monocytes 8.4 % (0.0-10.0); %Neutrophils 83.2 % (42.0-75.0); Hemoglobin 11.8 g/dL (12.0-16.0); Mean Corpuscular HGB CONC 33.3 g/dL (32.0-36.0); Mean Corpuscular Hemoglobin 28.8 pg (27.0-31.0); Mean Corpuscular Volume 86.4 fL (78.0-98.0); Mean Platelet Volume 9.1 fL (7.4-10.4); Platelet Count 237 thou/uL (130-400); RBC Distribution Width 14.1 % (11.5-14.5)
[2020-11-15 06:09] LABS: Anion Gap 13 mmol/L (10-20); BUN (Urea Nitrogen) 22 mg/dL (9.8-20.1); Calc. Creatinine Clearance 38 mL/min (70-130); Calcium 8.4 mg/dL (7.8-10.44); Carbon Dioxide 21 mmol/L (23-31); Chloride 107 mmol/L (98-107); Glucose 150 mg/dL (83-110); Potassium 4.2 mmol/L (3.5-5.1); Sodium 137 mmol/L (136-145)
[2020-11-15] MEDS ORDERED: Metoprolol Tartrate 100 MG TAB PO SCH (09:00)
[2020-11-15] MEDS ORDERED: Doxycycline 100 MG in Syringe 0 ML IVPB SCH (09:00)
[2020-11-15] MEDS: Ezetimibe 10 MG TAB PO SCH (09:34)
[2020-11-15] MEDS: Amlodipine 10 MG TAB PO SCH (09:34)
[2020-11-15] MEDS: hydrALAZINE 25 MG TAB PO SCH ×3 (09:34→20:50)
[2020-11-15] MEDS: Apixaban 5 MG TAB PO SCH ×2 (09:34→20:50)
[2020-11-15] MEDS ORDERED: Azithromycin 500 MG in Sodium Chloride 0.9% 250 ML 250 ML IVPB SCH (17:00)
[2020-11-16 05:01] LABS: #Eosinphils 0.3 thou/uL (0.0-0.7); #Lymphocytes 1.2 thou/uL (1.20-3.40); #Monocytes 1.2 thou/uL (0.11-0.59); #Neutrophils 10.3 thou/uL (1.40-6.50); %Basophils 0.2 % (0.0-1.0); %Eosinophils 2.5 % (0.0-10.0); %Lymphocytes 8.9 % (21.0-51.0); %Monocytes 9.1 % (0.0-10.0); %Neutrophils 79.3 % (42.0-75.0); Hemoglobin 12.3 g/dL (12.0-16.0); Mean Corpuscular HGB CONC 32.6 g/dL (32.0-36.0); Mean Corpuscular Hemoglobin 28.4 pg (27.0-31.0); Mean Platelet Volume 9.5 fL (7.4-10.4); Platelet Count 248 thou/uL (130-400); RBC Distribution Width 14.2 % (11.5-14.5); Red Blood Cell (RBC) Count 4.35 mill/uL (4.20-5.40)
[2020-11-16 05:18] LABS: Anion Gap 15 mmol/L (10-20); BUN (Urea Nitrogen) 30 mg/dL (9.8-20.1); Calc. Creatinine Clearance 36 mL/min (70-130); Calcium 8.8 mg/dL (7.8-10.44); Carbon Dioxide 21 mmol/L (23-31); Chloride 107 mmol/L (98-107); Glucose 110 mg/dL (83-110); Potassium 3.8 mmol/L (3.5-5.1); Sodium 139 mmol/L (136-145)
[2020-11-16] MEDS: Apixaban 5 MG TAB PO SCH ×2 (09:26→21:17)
[2020-11-16] MEDS: Amlodipine 10 MG TAB PO SCH (09:27)
[2020-11-16] MEDS: Furosemide 40 MG/4 ML VIAL SLOW IVP SCH (09:27)
[2020-11-16] MEDS: Ezetimibe 10 MG TAB PO SCH (09:27)
[2020-11-16] MEDS: hydrALAZINE 25 MG TAB PO SCH ×3 (09:27→21:17)
[2020-11-16] MEDS: Methimazole 5 MG TAB PO SCH (11:37)
[2020-11-17] MEDS: Apixaban 5 MG TAB PO SCH (09:12)
[2020-11-17] MEDS: Ezetimibe 10 MG TAB PO SCH (09:12)
[2020-11-17] MEDS: Methimazole 5 MG TAB PO SCH (09:12)
[2020-11-17] MEDS: hydrALAZINE 25 MG TAB PO SCH ×2 (09:13→14:35)
[2020-11-17] MEDS: Furosemide 40 MG/4 ML VIAL SLOW IVP SCH (09:13)
[2020-11-17] MEDS: Amlodipine 10 MG TAB PO SCH (09:13)
[2020-11-17 12:29] LABS: Legionella Urinary Ag Negative (Negative); Strep pneumo Urine Ag NEGATIVE (NEGATIVE)
[2020-11-17 15:42] VITALS: BP 127/78; TEMP 98.4
[2020-11-17 16:16] LABS: Free T4 (Free Thyroxine) 1.06 ng/dL (0.70-1.48); Thyroid Stimulating Hormone 0.9142 uIU/mL (0.35-4.94)
== END 2020-11-17 19:25 | disposition home health service (06) | DRG 291 ==
LOC: ERS 16:06 → ERHOLD 19:21 → 2NO 11-15 14:35
PROVIDERS: ADMIT Student in an Organized Health Care Education/Training Program; ATTEND Family Medicine
DX: I11.0 Hypertensive heart disease with heart failure (principal); J18.9 Pneumonia, unspecified organism; I50.33 Acute on chronic diastolic (congestive) heart failure; E03.9 Hypothyroidism, unspecified; E78.5 Hyperlipidemia, unspecified; E78.00 Pure hypercholesterolemia, unspecified; Z20.822 Contact with and (suspected) exposure to COVID-19; M10.9 Gout, unspecified; I48.91 Unspecified atrial fibrillation; H92.01 Otalgia, right ear; F41.9 Anxiety disorder, unspecified; Z87.891 Personal history of nicotine dependence; Z88.1 Allergy status to other antibiotic agents; Z88.8 Allergy status to other drugs, medicaments and biological substances; Z88.5 Allergy status to narcotic agent; Z95.5 Presence of coronary angioplasty implant and graft; Z86.73 Personal history of transient ischemic attack (TIA), and cerebral infarction without residual deficits; Z90.49 Acquired absence of other specified parts of digestive tract; Z95.1 Presence of aortocoronary bypass graft; Z90.710 Acquired absence of both cervix and uterus; Z79.82 Long term (current) use of aspirin; Z79.01 Long term (current) use of anticoagulants
CPT/HCPCS: 0240U; 36415; 71045; 71275; 80048; 80053; 83880; 84145; 84439; 84443; 84484; 85025; 87040; 87449; 87899; 93005; 93306; 94640; J0456; J1940; J1956; J3490; J7620; Q9967

== ENCOUNTER 2023-05-28 11:59 | Outpatient (CLI) | payer MEDICARE | END 2023-05-28 12:00 | disposition home or self-care (01) | LOC: BICRAD 11:59 | PROVIDERS: ATTEND Family Medicine | DX: M25.511 Pain in right shoulder (principal) ==

== ENCOUNTER 2023-10-23 13:43 | Outpatient (CLI) | payer MEDICARE | END 2023-10-23 13:44 | disposition home or self-care (01) | LOC: BICULT 13:43 | PROVIDERS: ATTEND Internal Medicine Endocrinology, Diabetes & Metabolism | DX: E04.2 Nontoxic multinodular goiter (principal); R94.6 Abnormal results of thyroid function studies | CPT/HCPCS: 76536 ==

== ENCOUNTER → 2024-01-06 | Day surgery (SDC) | payer MEDICARE ==
[~2024-01-06] MED LIST changes: -Iopamidol-370 76% 500 ML 1 ML ONE; +Lidocaine 1% PF 5 ML VIAL ONE; +Sodium Bicarbonate 2.5 MEQ/5 ML SDV ONE
== END ==
LOC: ULT 12:38
PROVIDERS: ATTEND Internal Medicine Endocrinology, Diabetes & Metabolism
PROC: 0G9G3ZX Drainage of Left Thyroid Gland Lobe, Percutaneous Approach, Diagnostic (ICD-10-PCS; principal; 2024-01-06)
DX: E04.1 Nontoxic single thyroid nodule (principal)
CPT/HCPCS: 10005; 88173; 88305